=== PATIENT | male | born 1970 | race Caucasian/White ===

== ENCOUNTER 2021-12-25 22:10 | Emergency (ER) | payer MEDICAID ==
[~2021-12-25] VITALS: Ht 162.6 cm; Wt 68.0 kg
[2021-12-25 22:20] VITALS: BP_SYST 153
--- NOTE | 2021-12-25 22:54 | NUR ---
Placed in room 7 . Placed on electronic device monitor, blood pressure machine and pulse oximeter. To gown for exam. Side rails up. Report given to SIMA ELY(REG).
[2021-12-25] MEDS ORDERED: ACETAMINOPHEN 500 MG TABLET PO ONE (23:15)
[2021-12-25] MEDS ORDERED: ASPIRIN 325 MG TABLET PO ONE (23:15)
--- NOTE | 2021-12-25 23:25 | NUR ---
pt biba from home s/p 1hr of palpitations. EKG ordered; and read by MD. pt denies any n/v sob, presents with eyes closed but answers questions. 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 hypertensive; md aware. Labs drawn and sent to lab. per family pt was on antihypertensive medication, unknown med, and stopped taking them. no other PMH endorsed. family also states pt was have c/p this past weekend and did not go to hospital. wctm
[2021-12-25 23:47] LABS: HEMATOCRIT 40.4 % (36-54); HEMOGLOBIN 13.9 g/dL (14.0-18.0); MEAN CORPUSCULAR HGB CONC 34 % (32-36); RED CELL DISTRIBUTION WIDTH 12.8 % (9.0-15.0)
--- NOTE | 2021-12-25 23:49 | NUR ---
COVID SPECIMEN SENT TO LAB.
[2021-12-25 23:52] LABS: BASOPHILS % (AUTO) 0.3 % (0.0-2.0); EOSINOPHILS # (AUTO) 0.2 K/uL (0.0-0.4); EOSINOPHILS % (AUTO) 2.8 % (0.0-4.0); LYMPHOCYTES # (AUTO) 2.4 K/uL (1.0-5.5); LYMPHOCYTES % (AUTO) 29.4 % (20.5-51.5); MEAN CORPUSCULAR HEMOGLOBIN 30 pg (27-31); MEAN CORPUSCULAR VOLUME 87 fL (79.0-98.0); MONOCYTES # (AUTO) 0.8 K/uL (0.0-1.0); MONOCYTES % (AUTO) 9.4 % (1.7-9.3); NEUTROPHILS # (AUTO) 4.8 K/uL (1.8-7.7); NEUTROPHILS % (AUTO) 58.1 % (40.0-70.0); PLATELET COUNT (AUTO) 258 K/uL (130-430); RED BLOOD CELL COUNT(AUTO) 4.67 MIL/uL (4.2-6.2); WHITE BLOOD COUNT (AUTO) 8.3 K/uL (4.8-10.8)
[2021-12-26 00:25] LABS: ALANINE AMINOTRANSFERASE 52 U/L (12-78); ALBUMIN 3.6 g/dL (3.4-4.8); ASPARTATE AMINOTRANSFERASE 23 U/L (10-37); CALCIUM 8.5 mg/dL (8.4-11.0); CREATININE 0.81 mg/dL (0.55-1.30); GLUCOSE 149 mg/dL (70-99); PHOSPHORUS 2.6 mg/dL (2.7-4.5); TOTAL BILIRUBIN 0.2 mg/dL (0.0-1.0); UREA NITROGEN, BLOOD 17 mg/dL (8-21)
[2021-12-26 00:28] LABS: GFR AFRICAN AMERICAN 129 mL/min (>90)
[2021-12-26 00:29] LABS: ALCOHOL, BLOOD < 3 mg/dL (<10)
[2021-12-26 00:37] LABS: ANION GAP 7 (5-15); CHLORIDE 101 mmol/L (98-107); POTASSIUM 3.4 mmol/L (3.5-5.1); SODIUM SERUM 135 mmol/L (136-145)
[2021-12-26 01:58] VITALS: BP_SYST 110
--- NOTE | 2021-12-26 03:21 | NUR ---
Patient given written and verbal discharge instructions and verbalizes understanding. ER MD discussed with patient the results and treatment provided. Patient in stable condition. ID arm band removed. IV catheter removed intact and dressing applied, no active bleeding. Rx of N/A given. Patient educated on pain management and to follow up with PMD. Pain Scale . Opportunity for questions provided and answered. Medication side effect fact sheet provided.
== END 2021-12-26 03:21 | disposition home or self-care (01) ==
LOC: SED 22:10
DX: R07.9 Chest pain, unspecified (principal); R10.9 Unspecified abdominal pain; Z79.899 Other long term (current) drug therapy; Z20.822 Contact with and (suspected) exposure to COVID-19
CPT/HCPCS: 99285; 74176; 71045; 87426; 80053; 82962; 83880; 83690; 83735; 84100; 85025; 84484; 36415; 93005 ×2; 76376; G0482